=== PATIENT | female | born 1945 | race Caucasian/White ===

== ENCOUNTER → 2017-11-16 11:12 | Outpatient (CLI) | payer MEDICARE, SELFPAY ==
[2017-11-16 12:43] LABS: Hematocrit 41.9 % (36-46); Hemoglobin 14.5 g/dL (12.0-16.0); Mean Corpuscular HGB Conc 34.6 % (30-36); Mean Corpuscular Volume 89.7 fL (80-100); Platelet Count 210 X10^3/uL (150-400); Red Blood Cell Count 4.67 X10^6/uL (4.0-5.2)
[2017-11-16 12:49] LABS: Alanine Aminotransferase 47 IU/L (9-52); Albumin Globulin Ratio 1.1 (1.0-2.8); Alkaline Phosphatase 94 U/L (38-126); Aspartate Aminotransferase 39 IU/L (14-36); BUN Creatinine Ratio 31.7 (6-22); Bilirubin Total 0.8 mg/dL (0.2-1.3); Blood Urea Nitrogen 19 mg/dL (7-17); Calcium 8.8 mg/dL (8.4-10.2); Carbon Dioxide 23 mmol/L (22-32); Chloride 108 mmol/L (98-107); Estimated Glomerular Filt Rate > 60.0 mL/min (>60); Globulin 3.5 g/dL (1.7-4.1); Glucose 105 mg/dL (80-110); HEMOLYSIS 17 (0-50); Potassium 4.4 mmol/L (3.4-5.1); Sodium 142 mmol/L (137-145); Total Protein 7.5 g/dL (6.3-8.2)
[2017-11-16 14:44] LABS: Neutrophils Absolute Manual 3780 /uL (3000-5900); RBC Morphology Normal Morphology; Total Cells Counted 100
== END ==
PROVIDERS: PCP Family Medicine; Visit Provider Nurse Practitioner Family
DX: R10.11 Right upper quadrant pain (principal)
CPT/HCPCS: 36415; 80053; 85025; 87522

== ENCOUNTER → 2017-11-21 08:46 | Outpatient (CLI) | payer MEDICARE, SELFPAY ==
--- NOTE | 2017-11-21 08:47 | DI.US.S_ITS ---
PROCEDURE: US ABDOMEN LIMITED INDICATIONS: RUQ ABD PAIN TECHNIQUE: Real-time focused scanning was performed of the abdomen, with image documentation. COMPARISON: [facility], CT, ABDOMEN/PELVIS WITH CONTRAST, 09/18/2007, 15:40. [facility], US, ABDOMEN COMPLETE, 01/27/2015, 14:27. [facility], US, ABDOMEN COMPLETE, 08/06/2015, 11:37. FINDINGS: Limited exam again shows a lobulated cyst in the anterior mid right lobe of liver now measuring 3.0 x 4.2 x 4.9 cm compared to 2.8 x 3.8 x 4.6 cm on last exam and 2.7 x 2.9 x 4.1 cm prior to that. Liver parenchyma is hyperechoic. Gallbladder is surgically absent. Common bile duct is normal at 6 mm. Visualized pancreas is normal. IMPRESSION: 1. Hepatic steatosis. Other causes of increased echogenicity or fatty infiltration is possible. 2. Hepatic cyst appears simple but is slowly increasing in size. 3. Status post cholecystectomy with normal common bile duct Dictated by: Humberto Lino M.D. on 11/21/2017 at 9:38 Approved by: Humberto Lino M.D. on 11/21/2017 at 9:43
== END ==
PROVIDERS: Family Provider Family Medicine; PCP Family Medicine; Visit Provider Nurse Practitioner Family
DX: R10.11 Right upper quadrant pain (principal); K76.0 Fatty (change of) liver, not elsewhere classified; K76.9 Liver disease, unspecified
CPT/HCPCS: 76705

== ENCOUNTER → 2017-11-27 14:12 | Outpatient (CLI) | payer MEDICARE, SELFPAY | PROVIDERS: Family Provider Family Medicine; PCP Family Medicine; Visit Provider Nurse Practitioner Family | DX: R14.2 Eructation (principal); R14.0 Abdominal distension (gaseous) | CPT/HCPCS: 83013 ==

== ENCOUNTER → 2017-12-09 16:27 | Outpatient (CLI) | payer MEDICARE, SELFPAY | PROVIDERS: Family Provider Family Medicine; PCP Family Medicine; Visit Provider Physician Assistant | DX: N39.0 Urinary tract infection, site not specified (principal) | CPT/HCPCS: 87077; 87086; 87186 ==

== ENCOUNTER → 2017-12-10 13:31 | Outpatient (CLI) | payer MEDICARE, SELFPAY ==
--- NOTE | 2017-12-10 13:33 | DI.MRI.S_ITS ---
PROCEDURE: MR ABDOMEN WO CON INDICATIONS: RUQ pain, R side and back pain TECHNIQUE: Axial 2-D FLASH in- and baz-ai-ipior, axial breath-hold T2 FSE, axial STIR FSE. Optional contrast may be given, followed by axial 2-D FLASH with fat saturation acquired over the lesion of concern. COMPARISON: [facility], , US ABDOMEN LIMITED, 11/21/2017, 9:11. FINDINGS: Image quality: Excellent. Region of interest: Right upper quadrant region in this patient with prominent hyperechoic echotexture through the liver parenchyma and several hepatic cysts including one that has increased in size. Through the liver parenchyma several scattered subcentimeter and are larger simple hepatic cysts can be seen. No solid hepatic mass lesion is found. No cystic neoplasm is suspected. Bones: Nearby osseous structures demonstrate normal overall marrow signal. IMPRESSION: A source of right upper quadrant pain is not identified. Scattered hepatic cysts are present, simple in character, and the largest cyst present a sharply demarcated, minimally lobulated along its borders, and shows no adjacent inflammation. Dictated by: Andrae Cramer M.D. on 12/10/2017 at 15:31 Approved by: Andrae Cramer M.D. on 12/10/2017 at 15:33
== END ==
PROVIDERS: Family Provider Family Medicine; PCP Family Medicine; Visit Provider Nurse Practitioner Family
DX: K76.89 Other specified diseases of liver (principal); R10.11 Right upper quadrant pain
CPT/HCPCS: 74181

== ENCOUNTER → 2017-12-25 16:24 | Outpatient (CLI) | payer MEDICARE, SELFPAY ==
--- NOTE | 2017-12-25 16:27 | DI.CT.S_ITS ---
PROCEDURE: CT KIDNEY URETER BLADDER (KUB) INDICATIONS: hematuria TECHNIQUE: Noncontrast 5 mm thick sections acquired from the diaphragms to the symphysis. 5 mm thick coronal and sagittal reformats were then performed. For radiation dose reduction, the following was used: automated exposure control, adjustment of mA and/or kV according to patient size. COMPARISON: [facility], CT, ABDOMEN/PELVIS WITH CONTRAST, 09/18/2007, 15:40. FINDINGS: Image quality: Excellent. Lung bases: Lung bases are clear. 2 mm nodules in the left lower lobe on image 4 series 3 is unchanged since 2007. Heart size is normal. Urinary system: Both kidneys are normal in size. No kidney stones. No hydronephrosis or perinephric fat stranding. Both ureters appear non-dilated throughout their expected courses. Bladder wall thickness is normal; no calcified bladder stones. Other solid organs: Liver is normal in size. Multiple presumed cysts/hemangiomas seen in the liver, one of which may be slightly increased in size since 09/18/07 (image 14 series 2) however statistically still probably cyst or hemangioma. Gallbladder surgically absent. Pancreas is normal in contours. Spleen is normal in size. No adrenal nodules. Peritoneum and bowel: Unenhanced bowel loops demonstrate normal wall thickness and caliber. No free fluid or air. The appendix appears normal. There are scattered colonic diverticula without evidence of acute complication. Nodes and vessels: No retroperitoneal or mesenteric adenopathy by size criteria. Aorta and inferior vena cava are normal in caliber. Abdominal wall: No ventral hernias. Pelvis: No free pelvic fluid. No inguinal hernias or adenopathy. Bilateral adnexal cystic lesions are seen, one of which appears unchanged on the right image 64 series 2 measuring 3 cm. The left adnexal cystic lesion measures 2.6 x 2.0 cm, previously 1.4 cm in diameter although unclear if this represents de aranza lesion, versus enlargement of the previously visible cyst. As clinically warranted, followup with ultrasound could be performed. Bones: No suspicious bony lesions. No vertebral body compression fractures. IMPRESSION: No urolithiasis. No evidence of urinary obstruction. No acute abnormality. Normal appendix. Multiple hepatic hypodense lesions, statistically cysts or hemangiomas as discussed above. Bilateral adnexal cystic lesions as discussed above, technically non-specific findings. One of these may have increased in size since the prior study. Recommend further evaluation (and long-term surveillance) with pelvic ultrasound. Incidental colonic diverticulosis. Dictated by: Nima Mccracken M.D. on 12/25/2017 at 15:56 Approved by: Nima Mccracken M.D. on 12/25/2017 at 16:21
== END ==
PROVIDERS: Family Provider Family Medicine; PCP Family Medicine; Visit Provider Nurse Practitioner Family
DX: R31.9 Hematuria, unspecified (principal); K76.9 Liver disease, unspecified; K57.90 Diverticulosis of intestine, part unspecified, without perforation or abscess without bleeding; R19.09 Other intra-abdominal and pelvic swelling, mass and lump
CPT/HCPCS: 74176

== ENCOUNTER → 2018-01-09 13:22 | Outpatient (CLI) | payer MEDICARE, SELFPAY ==
--- NOTE | 2018-01-09 13:24 | DI.US.S_ITS ---
PROCEDURE: US PELVIC COMPLETE INDICATIONS: CYSTS SEEN ON CT KUB TECHNIQUE: Real-time scanning was performed of the pelvic organs, with image documentation. Additional endovaginal scanning was necessary due to incomplete visualization of the adnexal and endometrial structures by transabdominal scanning. COMPARISON: [facility], , PELVIC COMPLETE, 05/01/2016, 12:59. [facility], , PELVIC COMPLETE, 08/06/2015, 11:16. FINDINGS: Transabdominal scanning: Limited scanning through the kidneys shows no hydronephrosis. No pathologic free abdominal or pelvic fluid. Endovaginal scanning: Uterus: Uterus is normal in size at 3.5 x 5.4 x 7.3 cm, anteverted. The endometrium measures 3.8 mm in combined thickness. There is a 1.5 x 0.9 x 1.2 cm midline posterior intramural fibroid and a second fibroid is seen on the left anteriorly and intramural space measuring up to 1.8 x 1.5 x 1.5 cm. Ovaries: The right ovary measures 3.6 x 2.6 x 3.0 cm and contains a simple cyst measuring up to 2.6 cm. The left ovary measures 2.1 x 3.0 x 2.9 cm and contains a 2.7 cm maximal dimension simples this. IMPRESSION: 2 small uterine fibroids are incidentally noted the largest of which measures up to 1.8 cm and no endometrial mass or abnormal fluid collection is seen. Each ovary contains a simple cyst, measuring between 2.6 and 2.7 cm in maximal dimension each. Dictated by: Andrae Cramer M.D. on 01/09/2018 at 14:45 Approved by: Andrae Cramer M.D. on 01/09/2018 at 14:46
== END ==
PROVIDERS: Family Provider Family Medicine; PCP Family Medicine; Visit Provider Nurse Practitioner Family
DX: D25.1 Intramural leiomyoma of uterus (principal); N83.202 Unspecified ovarian cyst, left side; N83.201 Unspecified ovarian cyst, right side
CPT/HCPCS: 76830; 76856

== ENCOUNTER → 2018-02-04 12:57 | Outpatient (CLI) | payer MEDICARE, SELFPAY ==
--- NOTE | 2018-02-04 12:58 | DI.RAD.S_ITS ---
This blank DEXA report has been sent in error by the PACS system. The correct and complete report will be forthcoming in 1-2 days. Thank you for your patience and understanding. Dictated by: Lele Ferrell M.D. on 02/04/2018 at 14:06 Approved by: Lele Ferrell M.D. on 02/04/2018 at 14:10
== END ==
PROVIDERS: Family Provider Family Medicine; PCP Family Medicine; Visit Provider Family Medicine
DX: M81.0 Age-related osteoporosis without current pathological fracture (principal); Z78.0 Asymptomatic menopausal state; E07.9 Disorder of thyroid, unspecified; Z82.62 Family history of osteoporosis
CPT/HCPCS: 77080

== ENCOUNTER → 2018-02-05 12:07 | Outpatient (CLI) | payer MEDICARE, SELFPAY ==
--- NOTE | 2018-02-05 12:08 | DI.US.S_ITS ---
PROCEDURE: US THYROID INDICATIONS: Hypothyroidism TECHNIQUE: Real-time scanning was performed of the thyroid gland, with image documentation. COMPARISON: [facility], US, THYROID, 09/03/2009, 15:02. FINDINGS: Right: Thyroid lobe measures 6.0 x 1.4 x 1.6 cm, and is homogeneous in echotexture. Left: Thyroid lobe measures 5.4 x 1.5 x 1.4 cm, and is homogenous in echotexture. Isthmus: 2.6 mm thick. Nodule number: 1 Location: Left inferior Size: 1.6 x 1.2 x 1.4 cm. Composition: Solid Echogenicity: Isoechoic Shape: wider than tall. Margins: Smooth Echogenic foci: None Total points: 4 ACR TI-RADS category: Moderately suspicious Nodule number: 2 Location: Left mid Size: 1.1 x 0.8 x 1.1 cm. Composition: Predominately cystic Echogenicity: Anechoic Shape: wider than tall. Margins: Smooth Echogenic foci: None Total points: 0 ACR TI-RADS category: Benign Nodule number: 3 Location: Right inferior Size: 1.5 x 1.2 x 1.0 cm. Composition: Solid Echogenicity: Hyperechoic Shape: wider than tall. Margins: Smooth Echogenic foci: None Total points: 3 ACR TI-RADS category: Mildly suspicious Nodule number: 4 Location: Right mid Size: 1.2 x 1.0 x 1.5 cm. Composition: Solid Echogenicity: Hypoechoic Shape: wider than tall. Margins: Smooth Echogenic foci: None Total points: 4 ACR TI-RADS category: Moderately suspicious IMPRESSION: Moderately suspicious bilateral thyroid nodules. Recommend sonographic directed fine needle aspiration of the left # 1 nodule as well as the right mid # 4 nodule. Continued followup of the additional thyroid nodules as below. ACR TI-RADS definitions and recommendations: TI-RADS 1 (benign): 0 points. FNA not needed. TI-RADS 2 (not suspicious): 2 points. FNA not needed. TI-RADS 3 (mildly suspicious): 3 points. * FNA if 2.5 cm or larger, follow up if 1.5 cm or larger (at 1, 3, and 5 years). TI-RADS 4 (moderately suspicious): 4-6 points. * FNA if 1.5 cm or larger, follow up if 1 cm or larger (at 1, 2, 3, and 5 years). TI-RADS 5 (highly suspicious): 7 points or more. * FNA if 1 cm or larger, follow up if 0.5 cm or larger (every year for 5 years). Dictated by: Sg YUEN Interpreted: Andrae Cramer MD on 02/05/2018 at 15:52 Approved by: Andrae Cramer M.D. on 02/05/2018 at 17:33
== END ==
PROVIDERS: Family Provider Family Medicine; PCP Family Medicine; Visit Provider Family Medicine
DX: E04.2 Nontoxic multinodular goiter (principal); E03.9 Hypothyroidism, unspecified
CPT/HCPCS: 76536

== ENCOUNTER → 2018-03-04 13:22 | Outpatient (CLI) | payer MEDICARE, SELFPAY ==
--- NOTE | 2018-03-04 | PATH_ITS ---
Note [facility] Accession Number: [id number] TESTS RESULT FLAG UNITS REF RANGE LAB Clinician Provided Cytology Information No. of containers..01 ThinPrep Vial No. of containers..08 Previously Prepared Cytology Slide THYROID NODULE DIAGNOSIS: THYROID NODULE INCONCLUSIVE. FOLLICULAR LESION OF UNDETERMINED SIGNIFICANCE. SPECIMEN CONSISTS OF ABUNDANT FOLLICULAR CELLS WITH SCANT COLLOID. THE DIFFERENTIAL DIAGNOSIS INCLUDES CELLULAR ADENOMATOID NODULE AND FOLLICULAR NEOPLASM. Pathologist ICD10: 02 R89.6 Newton Marie MD, Pathologist NPI- [id number] Nathan Douglas, Phlebotomist ([facility]) 01 30 CC, COLORLESS, SLIGHTLY CLOUDY RECEIVED: 4 ALCOHOL FIXED AND 4 QUICK STAINED SLIDES. /VDU FLAG LEGEND: L-Low Normal,H-High Normal,LL-Alert Low,HH-Alert High <-Panic Low,>-Panic High,A-Abnormal,AA-Critical Abnormal Performed at: 01 =Z [facility] [address], [place] [address] Jasson Walker MD, 02 [facility] [address] [place] [id number] Rene Martinez MD, Performed at: 01 [facility] [address], [place], [place] [id number] MD Jasson Walker MD Phone: [phone]
--- NOTE | 2018-03-04 13:24 | DI.US.S_ITS ---
PROCEDURE: US FINE NEEDLE ASPIRATION INDICATIONS: BILATERAL THYROID NODULES are biopsied today TECHNIQUE: The indications, alternatives, benefits, risks, and complications of the procedure were explained to the patient. Written informed consent was obtained and placed in the chart. The thyroid region was examined sonographically and a site was chosen for ultrasound guided percutaneous sampling. The skin was prepared and draped in the usual fashion, and anesthetized with 1% lidocaine infiltrated from the skin down to the thyroid gland. Multiple passes were then performed, with contents emptied into an appropriate pathology specimen container. A bandage was applied to the area of access at completion of the study. COMPARISON: None. FINDINGS: Location(s) of lesion(s) sampled: Within the right and within the left thyroid lobe discrete thyroid nodules are identified and the largest nodules are biopsied today, one each bilaterally. [place]: 25 gauge hypodermic needles 5 utilized on the right and 5 utilized on the left.. Number of passes: 10 total, 5 on the right and 5 on the left Medications: 1% lidocaine for local anaesthesia. Complications: None. IMPRESSION: Successful ultrasound-guided thyroid nodule fine needle aspiration performed bilaterally, with cytology results pending. Please see chart below for management recommendations based on cytology results. [facility] ReportingRecommendationsNon-diagnostic* Repeat US-guided FNA, with on-site cytology evaluation if possible. * Repeated non-diagnostic nodules without high suspicion US features: close observation vs surgical consult. * Consider surgery if nodule has high suspicion US features, grows >20% in 2 dimensions on followup, or patient has clinical risk factors for malignancy. Benign* If nodule has high suspicion US features: repeat US and FNA within 12 months. * If nodule has low to intermediate suspicion US features: repeat US at 12-24 months. If nodule grows (20% increase in at least 2 dimensions, with minimal increase of 2 mm or >50% change in volume), or development of new suspicious US features, then repeat FNA or continue followup. * If nodule has very low suspicion US features: followup US at >24 months. Atypia of undetermined significance, follicular lesion of undetermined significanceRepeat FNA, molecular testing, followup US, or surgical consult.Follicular neoplasm, suspicious for follicular neoplasmSurgical consult; also consider molecular testing. Suspicious for malignancySurgical consult.MalignantSurgical consult. Dictated by: Andrae Cramer M.D. on 03/04/2018 at 15:55 Approved by: Andrae Cramer M.D. on 03/04/2018 at 15:57
--- NOTE | 2018-03-04 14:33 | PATH_ITS ---
Specimen ID: [id number] Control ID: [id number] [facility] PATHOLOGY ONLY [address] [facility] [address] [address] [place] Patient Details : 1945 Age(y/m/d): Gender: F SSN: Specimen Details Date collected: 03/04/2018 1433 Local Date received: 03/05/2018 Date entered: 03/05/2018 Date reported: 03/06/2018 1408 ET Physician Details Ordering: Rc SOUZA Referring: ID: HARLEY Tests Ordered: Fine-Needle Aspiration; Fax Report Clinician Provided ICD Code(s) & Clinical History: Diagnosis: RT THYROID NODULE NEGATIVE FOR MALIGNANT CELLS. SPECIMEN CONSISTS OF BENIGN FOLLICULAR CELLS, HEMOSIDERIN-LADEN MACROPHAGES, COLLOID, AND BLOOD. THIS PATTERN IS CONSISTENT WITH A COLLOID NODULE. Pathologist Provided ICD Code(s): E04.1 Clinician Provided Cytology Information: Source: RT THYROID NODULE Number of Containers:01 ThinPrep Vial Number of Containers:08 Previously Prepared Cytology Slide ACC: [id number] PID: [id number] Gross Description: 30 CC, PINK, SLIGHTLY CLOUDY RECEIVED: 4 ALCOHOL FIXED AND 4 QUICK STAINED SLIDES. /VDU Comments: [id number] Performed by Christopher Brenner, Audio Video Tech (ASCP) Electronically signed by (02) Newton Marie MD, Pathologist NPI- [id number]
== END ==
PROVIDERS: Family Provider Family Medicine; PCP Family Medicine; Visit Provider Family Medicine
DX: E04.2 Nontoxic multinodular goiter (principal)
CPT/HCPCS: 10022; 76942

== ENCOUNTER → 2018-03-25 16:41 | Outpatient (CLI) | payer MEDICARE, SELFPAY | PROVIDERS: Family Provider Family Medicine; PCP Family Medicine; Visit Provider Physician Assistant | DX: N39.0 Urinary tract infection, site not specified (principal) | CPT/HCPCS: 87077; 87086; 87186 ==

== ENCOUNTER → 2018-04-11 12:03 | Outpatient (CLI) | payer MEDICARE, SELFPAY | PROVIDERS: Family Provider Family Medicine; PCP Family Medicine; Visit Provider Physician Assistant | DX: N39.0 Urinary tract infection, site not specified (principal) | CPT/HCPCS: 87077; 87086; 87186 ==

== ENCOUNTER → 2018-07-23 13:30 | Outpatient (CLI) | payer MEDICARE, SELFPAY ==
[2018-07-23 14:43] LABS: Alanine Aminotransferase 36 IU/L (9-52); Albumin 4.4 g/dL (3.5-5.0); Albumin Globulin Ratio 1.3 (1.0-2.8); Alkaline Phosphatase 80 U/L (38-126); Aspartate Aminotransferase 26 IU/L (14-36); Bilirubin Total 0.7 mg/dL (0.2-1.3); Blood Urea Nitrogen 24 mg/dL (7-17); Calcium 9.5 mg/dL (8.4-10.2); Carbon Dioxide 25 mmol/L (22-32); Chloride 104 mmol/L (98-107); Cholesterol 229 mg/dL (140-199); Estimated Glomerular Filt Rate > 60.0 mL/min (>60); Globulin 3.4 g/dL (1.7-4.1); Glucose 93 mg/dL (80-110); HDL Cholesterol 37 mg/dL (40-60); HEMOLYSIS < 15 (0-50); LDL Cholesterol Calculated 162 mg/dL (<100); Potassium 4.1 mmol/L (3.4-5.1); Sodium 141 mmol/L (137-145); Total Protein 7.8 g/dL (6.3-8.2); Triglycerides 150 mg/dL (35-150)
[2018-07-23 15:10] LABS: TSH w/ Reflex to FT4 1.79 uIU/mL (0.47-4.68)
== END ==
PROVIDERS: PCP Family Medicine; Visit Provider Family Medicine
DX: E04.1 Nontoxic single thyroid nodule (principal); E78.2 Mixed hyperlipidemia; K76.89 Other specified diseases of liver
CPT/HCPCS: 36415; 80053; 80061; 84443

== ENCOUNTER → 2018-08-21 11:14 | Outpatient (CLI) | payer MEDICARE, SELFPAY ==
--- NOTE | 2018-08-21 | DI.MG.S_ITS ---
BILATERAL DIGITAL SCREENING MAMMOGRAM 3D/2D WITH CAD: 08/21/2018 CLINICAL: Routine screening. Family history of breast cancer. Comparison is made to exams dated: 07/25/2016 mammogram, 01/27/2015 mammogram, and 12/03/2012 mammogram - [facility]. There are scattered fibroglandular elements in both breasts. Current study was also evaluated with a Computer Aided Detection (CAD) system. No significant masses, calcifications, or other findings are seen in either breast. There has been no significant interval change. IMPRESSION: NEGATIVE There is no mammographic evidence of malignancy. A 1 year screening mammogram is recommended. This exam was interpreted at Station ID: [id number]. NOTE: For mammograms, a report in lay terms will be sent to the patient. Approximately 15% of breast malignancies will not be visualized mammographically. In the management of a palpable breast mass, a negative mammogram must not discourage biopsy of a clinically suspicious lesion. Electronically Signed By: Hal gresham/stevie:08/21/2018 15:49:19 letter sent: Normal Exam ACR BI-RADS Category 1: Negative [id number]
== END ==
PROVIDERS: PCP Family Medicine; Visit Provider Family Medicine
DX: Z12.31 Encounter for screening mammogram for malignant neoplasm of breast (principal); Z80.3 Family history of malignant neoplasm of breast
CPT/HCPCS: 77063; 77067